=== PATIENT | male | born 1980 | race Caucasian/White ===

== ENCOUNTER 2018-03-04 21:07 | Emergency (ER) | payer OTHER ==
[~2018-03-04] VITALS: Ht 170.2 cm; Wt 117.9 kg
[2018-03-04 21:10] VITALS: BP_SYST 144
--- NOTE | 2018-03-05 00:33 | NUR ---
Placed in room 08 . Placed on personnel monitor, blood pressure machine and pulse oximeter. To gown for exam. Side rails up. Report given to .
--- NOTE | 2018-03-05 00:35 | NUR ---
Patient ambulatory to ED a/o x 4 with c/o / left sided earache times x 3 days. Reports discharge and distorted hearing. Took [place] at home with minimal relief. New onset loss of balance. Afebrile. -N/V.
--- NOTE | 2018-03-05 00:41 | NUR ---
ED MD Metcalf at bedside for medical evaluation.
[2018-03-05] MEDS ORDERED: IBUPROFEN 600 MG TABLET PO ONE (00:45)
[2018-03-05] MEDS ORDERED: HYDROcodone/ACETAMIN 10-325 MG TAB PO ONE (00:45)
[2018-03-05] MEDS ORDERED: LEVOFLOXACIN 500 MG TABLET PO ONE (01:15)
--- NOTE | 2018-03-05 01:30 | NUR ---
Patient reports relief of pain to affected ear. Reports pain is now a /. ED MD Metcalf made aware.
[2018-03-05 01:36] VITALS: BP_SYST 141
--- NOTE | 2018-03-05 01:36 | NUR ---
Patient given written and verbal discharge instructions and verbalizes understanding. ER MD discussed with patient the results and treatment provided. Patient in stable condition. ID arm band removed. Rx of Ciprodex, ibuprofen, levaquin and percocet given. Patient educated on pain management and to follow up with PMD. Pain Scale 3/10 tolerable for patient. Opportunity for questions provided and answered. Medication side effect fact sheet provided.
--- NOTE | 2018-03-05 03:35 | NUR ---
Note anandone in EDM - 03/05/18 at 0355 by [email or web address] Patient ambulatory to ED a/o x 4 with c/o 10/10 left sided earache times x 3 days. Reports discharge and distorted hearing. Took [place] at home with minimal relief. New onset loss of balance. Afebrile. -N/V.
== END 2018-03-05 01:36 | disposition home or self-care (01) ==
LOC: SED 21:07
DX: H66.93 Otitis media, unspecified, bilateral (principal)
CPT/HCPCS: 99284